=== PATIENT | male | born 1985 | race Caucasian/White ===

== ENCOUNTER 2016-11-11 09:39 | Emergency (ER) | payer OTHER ==
[~2016-11-11] VITALS: Ht 188 cm; Wt 115.0 kg
[~2016-11-11 09:39] MED LIST: BACTRIM DS1 TAB PO; NAPROSYN500 MG PO
[2016-11-11] MEDS ORDERED: TOBRAMYCIN0.3 % OD (10:18)
[2016-11-11] MEDS ORDERED: TYLENOL # 31 TA1 PO (10:18)
[2016-11-11 10:30] VITALS: BP 161/101
== END 2016-11-11 10:30 | disposition home or self-care (01) | DRG 125 ==
LOC: ED 09:39
DX: S05.01XA Injury of conjunctiva and corneal abrasion without foreign body, right eye, initial encounter (principal); H53.8 Other visual disturbances; V43.52XA Car driver injured in collision with other type car in traffic accident, initial encounter; Y92.414 Local residential or business street as the place of occurrence of the external cause